=== PATIENT | female | born 1975 | race Hispanic/Latino ===

== ENCOUNTER 2020-02-18 14:01 | Emergency (ER) | payer OTHER, SELFPAY ==
[2020-02-19 16:08] LABS: SARS-CoV-2 MS2 Positive; SARS-CoV-2 N Gene Positive; SARS-CoV-2 S Gene Positive; SARS-CoV-2 orf1ab Positive
== END 2020-02-18 15:44 | disposition home or self-care (01) ==
LOC: ERS 14:01
DX: U07.1 COVID-19 (principal)
CPT/HCPCS: 87635; 99283; U0003

== ENCOUNTER 2023-05-19 17:10 | Emergency (ER) | payer SELFPAY ==
[2023-05-19] MEDS ORDERED: Ketorolac Tromethamine 30 MG/ML VIAL ONE ×2 (18:07→18:08)
== END 2023-05-19 18:25 | disposition home or self-care (01) ==
LOC: ERS 17:10
DX: M25.561 Pain in right knee (principal)
CPT/HCPCS: 96372; J1885